=== PATIENT | male | born 1955 | race African-American/Black ===

== ENCOUNTER 2017-02-04 20:51 | Emergency (ER) | payer OTHER ==
[~2017-02-04 20:51] MED LIST: MORP15TA67 PO
== END 2017-02-04 22:07 | disposition left against medical advice (07) ==
LOC: ER 20:51
DX: Z53.21 Procedure and treatment not carried out due to patient leaving prior to being seen by health care provider (principal)

== ENCOUNTER 2017-05-05 09:43 | Emergency (ER) | payer OTHER ==
[~2017-05-05] VITALS: Ht 182.9 cm; Wt 130.0 kg
[2017-05-05] MEDS ORDERED: HYDROCODONE/APAP 7.5/325MG 1 TAB TABLET PO ONE (10:45)
[2017-05-05] MEDS ORDERED: KETOROLAC 60MG/2ML VIAL IM ONE (10:45)
[2017-05-05] MEDS ORDERED: MORPHINE SULFATE 10 MG/ML CPJ IM ONE (15:30)
[2017-05-05 17:27] VITALS: BP 125/79
== END 2017-05-05 17:30 | disposition home or self-care (01) ==
LOC: ER 10:10
DX: M25.561 Pain in right knee (principal); M54.5 Low back pain; M17.11 Unilateral primary osteoarthritis, right knee; I10 Essential (primary) hypertension; Z85.46 Personal history of malignant neoplasm of prostate; Z92.21 Personal history of antineoplastic chemotherapy
CPT/HCPCS: 72100; 73562; 73700; 96372; 99284; J1885; J2270; L1830; Z7610

== ENCOUNTER 2018-06-22 09:08 | Emergency (ER) | payer OTHER ==
[~2018-06-22] VITALS: Ht 185.4 cm; Wt 118.0 kg
[2018-06-22] MEDS ORDERED: KETOROLAC 30MG/ML VIAL IV STA (09:51)
[2018-06-22] MEDS ORDERED: MORPHINE SULFATE 4 MG/ML CPJ (NOT FOR IM USE) IV STA (09:51)
[2018-06-22] MEDS ORDERED: ACETAMINOPHEN 325MG TABLET PO ONE (10:00)
[2018-06-22] MEDS ORDERED: OXYCODONE HCL/ACETAMINOPHEN 5/325MG TABLET PO ONE (10:30)
[2018-06-22] MEDS ORDERED: MORPHINE SULFATE 10 MG/ML CPJ IV NR (10:30)
[2018-06-22 11:29] VITALS: BP 182/117
== END 2018-06-22 11:43 | disposition home or self-care (01) ==
LOC: ER 09:48
DX: M54.9 Dorsalgia, unspecified (principal); G89.29 Other chronic pain; Z76.0 Encounter for issue of repeat prescription; I10 Essential (primary) hypertension; Z90.49 Acquired absence of other specified parts of digestive tract; Z85.9 Personal history of malignant neoplasm, unspecified
CPT/HCPCS: 96374; 96375; 99283; J1885; J2270

== ENCOUNTER 2019-12-18 13:49 | Emergency (ER) | payer OTHER ==
[~2019-12-18] VITALS: Ht 188 cm; Wt 136.5 kg
[2019-12-18] MEDS ORDERED: cyclobenzaprine (13:58)
[2019-12-18] MEDS ORDERED: gabapentin (13:58)
[2019-12-18] MEDS ORDERED: PHENAZOPYRIDINE (13:58)
[2019-12-18] MEDS ORDERED: chlorthalidone (13:58)
[2019-12-18] MEDS ORDERED: OXYBUTYNIN (13:58)
[2019-12-18] MEDS ORDERED: terazosin (13:58)
[2019-12-18] MEDS ORDERED: buspirone (13:58)
[2019-12-18] MEDS ORDERED: benazepril (13:58)
[2019-12-18] MEDS ORDERED: ACETAMINOPHEN WITH CODEINE 300/30MG TABLET PO ONE (14:30)
[2019-12-18 18:09] VITALS: BP 136/78
== END 2019-12-18 18:10 | disposition home or self-care (01) ==
LOC: ER 14:01
DX: S00.83XA Contusion of other part of head, initial encounter (principal); S30.0XXA Contusion of lower back and pelvis, initial encounter; Y04.2XXA Assault by strike against or bumped into by another person, initial encounter; Y93.89 Activity, other specified; Y92.89 Other specified places as the place of occurrence of the external cause
CPT/HCPCS: 72100; 82962; 99284

== ENCOUNTER 2020-09-06 15:30 | Emergency (ER) | payer MEDICAID, OTHER ==
[~2020-09-06] VITALS: Ht 182.9 cm; Wt 140.0 kg
[~2020-09-06 15:30] MED LIST changes: +AMLO10TA80 MT; +GABA800T97 PO; +HYDR-4346 PO; +INSU100I32 SQ; +METF-873 MT; -MORP15TA67 PO; +TEMA30CA PO; +TRAM50TA3 MT
[2020-09-06] MEDS ORDERED: MORPHINE SULFATE 4 MG/ML CPJ (NOT FOR IM USE) IV STA ×2 (15:45→16:23)
[2020-09-06 16:14] LABS: BASOPHILS % 0.6 % (0.0-2.0); EOSINOPHILS % 2.5 % (0.0-5.0); HEMATOCRIT. 43.3 % (42.0-52.0); HEMOGLOBIN. 14.2 g/dL (14.0-18.0); MEAN CORPUSCULAR HEMOGLOBIN 28.3 pg (28.0-32.0); MEAN CORPUSCULAR VOLUME 86.5 fL (80.0-94.0); MEAN PLATELET VOLUME 9.2 fl (7.4-10.4); MONOCYTES % 7.2 % (2.0-8.0); NEUTROPHILS % 63.7 % (40.0-76.0); PLATELET 292 x1000/uL (130-400); RED BLOOD CELL COUNT 5.01 mill/uL (4.7-6.1); RED CELL DISTRIBUTION WIDTH 14.6 % (11.6-14.6)
[2020-09-06 16:17] LABS: CHLORIDE 99 mEq/L (98-107)
[2020-09-06 16:21] LABS: PROTHROMBIN TIME 10.6 sec (9.6-11.0)
[2020-09-06] MEDS ORDERED: KETOROLAC 30MG/ML VIAL IV STA (16:23)
[2020-09-06] MEDS ORDERED: ONDANSETRON HCL 4MG/2ML INJ IV STA (16:23)
[2020-09-06] MEDS ORDERED: SODIUM CHLORIDE 0.9% 1,000 ML IV ONE (16:30)
[2020-09-06 20:50] VITALS: BP 122/68
== END 2020-09-06 20:53 | disposition home or self-care (01) ==
LOC: ER 15:30
DX: M54.5 Low back pain (principal); M54.2 Cervicalgia; R51.9 Headache, unspecified; E11.65 Type 2 diabetes mellitus with hyperglycemia; I10 Essential (primary) hypertension; Z86.73 Personal history of transient ischemic attack (TIA), and cerebral infarction without residual deficits; Z99.3 Dependence on wheelchair; Z79.4 Long term (current) use of insulin; W07.XXXA Fall from chair, initial encounter; Y93.89 Activity, other specified; Y92.018 Other place in single-family (private) house as the place of occurrence of the external cause
CPT/HCPCS: 36415; 70450; 72125; 72131; 80053; 85025; 85610; 93005; 96361; 96374; 96375; 96376; 99285; J1885; J2270; J2405; J7030; Z7610

== ENCOUNTER 2020-09-22 18:40 | Emergency (ER) | payer OTHER ==
[~2020-09-22] VITALS: Ht 172.7 cm; Wt 135.0 kg
[2020-09-22] MEDS ORDERED: NYSTATIN 100,000 UNITS/GM CREAM 15GM TOP SCH (21:00)
[2020-09-22 21:08] LABS: BASOPHILS % 0.4 % (0.0-2.0); EOSINOPHILS % 0.8 % (0.0-5.0); HEMOGLOBIN. 14.7 g/dL (14.0-18.0); LYMPHOCYTES % 11.1 % (20.0-50.0); MEAN CORPUSCULAR HEMOGLOBIN 28.4 pg (28.0-32.0); MEAN CORPUSCULAR VOLUME 86.5 fL (80.0-94.0); MEAN PLATELET VOLUME 9.6 fl (7.4-10.4); MONOCYTES % 6.6 % (2.0-8.0); NEUTROPHILS % 81.1 % (40.0-76.0); PLATELET 257 x1000/uL (130-400); RED BLOOD CELL COUNT 5.19 mill/uL (4.7-6.1); RED CELL DISTRIBUTION WIDTH 14.4 % (11.6-14.6)
[2020-09-22 21:17] LABS: CHLORIDE 97 mEq/L (98-107)
[2020-09-22 21:20] LABS: PROTHROMBIN TIME 10.3 sec (9.6-11.0)
[2020-09-22 22:01] LABS: CLARITY URINE CLOUDY (CLEAR); COLOR URINE YELLOW (YELLOW); KETONES URINE NEGATIVE (NEGATIVE); LEUKOCYTE ESTERASE URINE 1+ (NEGATIVE); NITRITE URINE NEGATIVE (NEGATIVE); OCCULT BLOOD URINE 1+ (NEGATIVE); PH URINE 5.5 (4.5-8.0); PROTEIN URINE 1+ (NEGATIVE); SPECIFIC GRAVITY URINE 1.039 (1.005-1.030); UROBILINOGEN URINE 0.2 E.U./dL (0.2-1.0)
[2020-09-22] MEDS ORDERED: SODIUM CHLORIDE 0.9% 1,000 ML IV ONE (22:30)
[2020-09-22] MEDS ORDERED: INSULIN REGULAR (HUMULIN R) 300UNITS/3ML VIAL IV SCH (22:30)
[2020-09-22] MEDS ORDERED: CEFTRIAXONE 1 G PREMIX 50 ML IV SCH (22:30)
[2020-09-23 00:24] VITALS: BP 134/82
== END 2020-09-23 00:28 | disposition left against medical advice (07) ==
LOC: ER 18:40 → EDBEDREQTM 22:25 → EDBEDREQ 22:25 → EDBEDREQSVC 22:25 → ENRESERV 09-23 00:05 → CANRESERV 09-23 00:07 → ENRESERV 09-23 00:07 → CANBEDREQ 09-23 00:21 → ER 09-23 00:28
DX: E11.65 Type 2 diabetes mellitus with hyperglycemia (principal); N39.0 Urinary tract infection, site not specified; B37.49 Other urogenital candidiasis; I10 Essential (primary) hypertension; F32.9 Major depressive disorder, single episode, unspecified; E66.9 Obesity, unspecified; Z68.42 Body mass index [BMI] 45.0-49.9, adult; Z86.73 Personal history of transient ischemic attack (TIA), and cerebral infarction without residual deficits; Z85.9 Personal history of malignant neoplasm, unspecified; Z79.4 Long term (current) use of insulin
CPT/HCPCS: 36415; 70450; 71045; 80053; 81003; 83605; 84145; 85025; 85610; 87040; 87077; 87086; 87186; 93005; 96365; 96375; 99285; J0696; J1815

== ENCOUNTER 2021-06-01 12:37 | Emergency (ER) | payer MEDICARE, OTHER ==
[~2021-06-01] VITALS: Ht 175.3 cm; Wt 120.0 kg
[2021-06-01] MEDS ORDERED: SODIUM CHLORIDE 0.9% 1,000 ML IV ONE (13:45)
[2021-06-01 14:55] LABS: BASOPHILS % 0.5 % (0.0-2.0); EOSINOPHILS % 1.8 % (0.0-5.0); HEMATOCRIT. 41.9 % (42.0-52.0); HEMOGLOBIN. 13.8 g/dL (14.0-18.0); LYMPHOCYTES % 26.8 % (20.0-50.0); MEAN CORPUSCULAR HEMOGLOBIN 28.9 pg (28.0-32.0); MEAN CORPUSCULAR VOLUME 87.7 fL (80.0-94.0); MEAN PLATELET VOLUME 9.4 fl (7.4-10.4); MONOCYTES % 8.7 % (2.0-8.0); NEUTROPHILS % 62.2 % (40.0-76.0); PLATELET 280 x1000/uL (130-400); RED BLOOD CELL COUNT 4.78 mill/uL (4.7-6.1); RED CELL DISTRIBUTION WIDTH 14.2 % (11.6-14.6)
[2021-06-01 15:02] LABS: CHLORIDE 101 mEq/L (98-107)
[2021-06-01 15:08] LABS: ETHANOL BLOOD < 10 mg/dL
[2021-06-01 15:28] LABS: CLARITY URINE CLOUDY (CLEAR); COLOR URINE YELLOW (YELLOW); KETONES URINE NEGATIVE (NEGATIVE); LEUKOCYTE ESTERASE URINE 1+ (NEGATIVE); NITRITE URINE POSITIVE (NEGATIVE); OCCULT BLOOD URINE NEGATIVE (NEGATIVE); PROTEIN URINE NEGATIVE (NEGATIVE); SPECIFIC GRAVITY URINE 1.022 (1.005-1.030); UROBILINOGEN URINE 0.2 E.U./dL (0.2-1.0)
[2021-06-01 15:53] LABS: *AMPHETAMINES SCREEN URINE NEGATIVE (NEGATIVE); *BARBITURATES SCREEN URINE NEGATIVE (NEGATIVE)
[2021-06-01 15:54] LABS: *BENZODIAZEPINES SCREEN URINE PRESUMTIVE POSITIVE (NEGATIVE); *COCAINE SCREEN URINE NEGATIVE (NEGATIVE); CANNABINOID URINE SCREEN PRESUMTIVE POSITIVE (NEGATIVE); METHADONE URINE SCREEN NEGATIVE (NEGATIVE); PHENCYCLIDINE URINE SCREEN NEGATIVE (NEGATIVE)
[2021-06-01 15:57] LABS: OPIATES URINE SCREEN PRESUMTIVE POSITIVE (NEGATIVE)
[2021-06-02] MEDS ORDERED: CEFTRIAXONE 1 G PREMIX 50 ML IV ONE (00:45)
[2021-06-02] MEDS ORDERED: CLOTRIMAZOLE 1% CREAM 15GM TOP ONE (03:00)
[2021-06-02] MEDS ORDERED: INSULIN LISPRO 100 UNITS/ML SUBCUT ONE (03:00)
[2021-06-02] MEDS ORDERED: ACETAMINOPHEN 325MG TABLET PO ONE (09:30)
[2021-06-02] MEDS ORDERED: AMLODIPINE 10MG TABLET PO NR (09:45)
[2021-06-02 11:45] VITALS: BP 137/77
[2021-06-02] MEDS ORDERED: CEPHALEXIN 250MG CAPSULE PO ONE (12:00)
[2021-06-02] MEDS ORDERED: CEPH500T MT (12:17)
== END 2021-06-02 14:09 | disposition home or self-care (01) ==
LOC: ER 12:37
DX: T39.1X2A Poisoning by 4-Aminophenol derivatives, intentional self-harm, initial encounter (principal); T42.4X2A Poisoning by benzodiazepines, intentional self-harm, initial encounter; N39.0 Urinary tract infection, site not specified; E11.9 Type 2 diabetes mellitus without complications; I10 Essential (primary) hypertension; F17.210 Nicotine dependence, cigarettes, uncomplicated; Z20.822 Contact with and (suspected) exposure to COVID-19; Z86.73 Personal history of transient ischemic attack (TIA), and cerebral infarction without residual deficits; Z79.4 Long term (current) use of insulin; Z85.9 Personal history of malignant neoplasm, unspecified; Y92.018 Other place in single-family (private) house as the place of occurrence of the external cause
CPT/HCPCS: 36415; 71045; 80053; 80305; 80307; 80320; 80329; 81003; 82962; 83690; 85025; 93005; 96361; 96365; 99285; C9803; J0696; J1815; J7030; U0003; U0005; G0480